=== PATIENT | male | born 1975 | race Two or more races ===

== ENCOUNTER 2017-09-24 21:42 | Emergency (ER) | payer SELFPAY ==
[2017-09-24 21:51] VITALS: BP 157/111
--- NOTE | 2017-09-24 22:09 | EDM.PDOCBH ---
ED HPI GENERAL MEDICAL PROBLEM - General Chief Complaint: Drug or Alcohol Abuse Stated Complaint: medical clearence Time Seen by Provider: 09/24/17 22:00 Source of Information: Reports: Patient, Police History Limitations: Reports: Intoxication - History of Present Illness INITIAL COMMENTS - FREE TEXT/NARRATIVE: The patient presents for medical clearance. He was at a [employer] party and he got drunk and they wanted him to leave. The police were called and they took him to the address he gave them but he does not live there anymore. He will be going to the [facility] to sleep it off. He does admit to drinking. He denies taking any illegal drugs. He has no medical problems and he has no complaints. Onset: Gradual Duration: Hour(s): Severity: Moderate Improves with: Reports: None Worsens with: Reports: None Context: Reports: Activity (He drank to much beer at a [employer] party) Associated Symptoms: Reports: No Other Symptoms - Related Data Allergies Allergy/AdvReac Type Severity Reaction Status Date / Time No Known Allergies Allergy Verified 10/24/15 11:23 Home Meds: Home Meds . [No Known Home Meds] 09/24/17 [History] Past Medical History - Past Health History Medical/Surgical History: Denies Medical/Surgical History Other Cardiovascular History: Tachycardia Musculoskeletal History: Reports: Fracture - Past Surgical History GI Surgical History: Reports: Appendectomy Social & Family History - Family History Cardiac: Reports: Cardiomyopathy - Tobacco Use Smoking Status *Q: Never Smoker Second Hand Smoke Exposure: Yes - Caffeine Use Caffeine Use: Reports: Coffee - Recreational Drug Use Recreational Drug Use: No - Living Situation & Occupation Living situation: Reports: with Family ED ROS GENERAL - Review of Systems Review Of Systems: See Below Constitutional: Reports: No Symptoms HEENT: Reports: No Symptoms Respiratory: Reports: No Symptoms Cardiovascular: Reports: No Symptoms Endocrine: Reports: No Symptoms GI/Abdominal: Reports: No Symptoms : Reports: No Symptoms Musculoskeletal: Reports: No Symptoms ED EXAM, BEHAVIORAL HEALTH - Physical Exam Exam: See Below Exam Limited By: No Limitations General Appearance: Alert, No Apparent Distress Ears: Normal External Exam Nose: Normal Inspection Head: Atraumatic, Normocephalic Neck: Normal Inspection Respiratory/Chest: No Respiratory Distress, Lungs Clear, Normal Breath Sounds Cardiovascular: Regular Rate, Rhythm, No Edema, No Murmur GI/Abdominal: Soft, Non-Tender, No Organomegaly, No Mass Back Exam: Normal Inspection Extremities: Normal Inspection Neurological: Other (Slurred speech) COURSE, BEHAVIORAL HEALTH COMP - Course Vital Signs: Last Vital Signs Temp 96.3 F 09/24/17 21:49 Pulse 132 H 09/24/17 21:49 Resp 20 09/24/17 21:49 BP 157/111 H 09/24/17 21:49 Pulse Ox 95 09/24/17 21:49 Re-Assessment/Re-Exam: The patient did not want his blood drawn. He is medically cleared to go to the [facility]. Departure - Departure Time of Disposition: 22:10 Disposition: Home, Self-Care 01 Condition: Good Clinical Impression: Alcohol abuse Alcohol intoxication Qualifiers: Complication of substance-induced condition: uncomplicated Qualified Code(s): F10.920 - Alcohol use, unspecified with intoxication, uncomplicated - Discharge Information Referrals: PCP,None [Primary Care Provider] - Additional Instructions: A medical screening exam was done and you are medically cleared to go to the [facility]. Please return if you have any other problems.
== END 2017-09-24 22:23 | disposition home or self-care (01) ==
LOC: JD.ED 21:42
DX: F10.120 Alcohol abuse with intoxication, uncomplicated (principal)
CPT/HCPCS: 99282; 99283